=== PATIENT | male | born 1945 | race Hispanic/Latino ===

== ENCOUNTER 2023-10-18 10:21 | Day surgery (SDC) | payer MEDICARE ==
[~2023-10-18] VITALS: Ht 182.9 cm; Wt 106.6 kg
[~2023-10-18 10:21] MED LIST: AEC81 PO; AMAN100C14 PO; CAPT12.55 PO; CARB-38 PO; CELE100C PO; EZET-80 PO; FAMO40TA7 PO; FEXO180T94 PO; FURO-151 PO; MAGN1TAB2 PO; MECL-226 PO; POLY119P2 PO; PREG50 PO; RANO500T2 PO; RASA1TAB4 PO; SERT-439 PO; TAMS-1 PO
[2023-10-18 11:00] VITALS: BP 151/90; PULSE 61; RESP 12
[2023-10-18] MEDS ORDERED: PROPOFOL 10 MG/ML 20ML VIAL IV ONE (12:16)
== END 2023-10-18 13:30 | disposition home or self-care (01) ==
LOC: CANPRESDC → DAH 10:21 → ENDO 10:21
PROVIDERS: ATTEND Internal Medicine Gastroenterology
DX: R13.10 Dysphagia, unspecified (principal); K29.50 Unspecified chronic gastritis without bleeding; K22.89 Other specified disease of esophagus; K44.9 Diaphragmatic hernia without obstruction or gangrene; K21.9 Gastro-esophageal reflux disease without esophagitis; E78.5 Hyperlipidemia, unspecified; I10 Essential (primary) hypertension; I25.10 Atherosclerotic heart disease of native coronary artery without angina pectoris; I48.91 Unspecified atrial fibrillation; I73.9 Peripheral vascular disease, unspecified; G20.A1 Parkinson's disease without dyskinesia, without mention of fluctuations; M19.90 Unspecified osteoarthritis, unspecified site; Z86.16 Personal history of COVID-19; Z82.49 Family history of ischemic heart disease and other diseases of the circulatory system; Z83.3 Family history of diabetes mellitus; Z82.5 Family history of asthma and other chronic lower respiratory diseases; Z88.8 Allergy status to other drugs, medicaments and biological substances; Z91.040 Latex allergy status; Z87.891 Personal history of nicotine dependence; Z79.82 Long term (current) use of aspirin; Z79.899 Other long term (current) drug therapy; Z98.42 Cataract extraction status, left eye; Z98.890 Other specified postprocedural states
CPT/HCPCS: 43249; 88305; 88312; 43239; J2704; C1726; A4620; A4215 ×2; A4223; A7002; A4222; A4221; A4663; J7030; A4606; J3490